=== PATIENT | female | born 1950 | race Caucasian/White ===

== ENCOUNTER → 2016-09-03 | Outpatient (CLI) | payer MEDICARE, OTHER ==
--- NOTE | 2016-09-03 13:38 | RAD ---
EXAM DESCRIPTION: Chest,2 Views CLINICAL HISTORY: COUGH COMPARISON: None available FINDINGS: The cardiomediastinal silhouette is unremarkable. There is no airspace consolidation or pleural effusion. The bronchovascular markings are within normal limits, and the lungs are not hyperinflated. There is no pneumothorax or acute fracture. Postoperative changes are noted in the right shoulder. There are degenerative changes in the thoracic spine at several levels. IMPRESSION: Degenerative and postoperative changes, but no pneumonia or other intrathoracic abnormality to explain cough. Electronically signed by: Brennon Honeycutt MD 09/03/2016 1:37 PM [facility] [employer]
== END | disposition home or self-care (01) ==
LOC: RAD 12:46
PROVIDERS: ATTEND Nurse Practitioner Family
DX: R05 Cough (principal); R06.09 Other forms of dyspnea